=== PATIENT | male | born 1970 | race Caucasian/White ===

== ENCOUNTER 2017-08-05 17:41 | Emergency (ER) | payer OTHER ==
[~2017-08-05] VITALS: Ht 180.3 cm; Wt 81.7 kg
[~2017-08-05 17:41] MED LIST: ACET325 PO; ALBU90OI6 INH; ALPR.5 PO; AMOCLA875 PO; BACL20 PO; BENZ100A PO; CEPH500; CEPH500 PO; CETI10 PO; CLON.1 PO; CLON.5 PO; CYCL10 PO; DIAZ5 PO; DULO30 PO; EPIN.3I IM; FAMO20 PO; GABA300 PO; HYDACE10B PO; HYDACE5 PO; Hydroxyzine HCl50 MG PO; Hytrin PO; IBUP600 PO; IBUP800 PO; LITHIUM PO; LORA10ER; LORA10ER PO; Lamictal PO; Lamictal150 MG PO; MELO7.5 PO; MONT10T PO; Monodox100 MG PO; NAPR500 PO; Naprosyn500 MG PO; OLAN10 PO; OMEP20ER PO; OMEPRAZOLE MAGN20 MG PO; OXYACE5T PO; OXYC10TA19 PO; OXYC15ER PO; PERCOCET PO; PRED20 PO; PROC10 PO; PROC25S PR; PROC5 PO; PROM25 PO; PROM25S PR; PSEU120ER PO; Percocet 5-3251 EACH PO; Prednisone20 MG PO; RXCYCL10 PO; RXPROM25 PO; SERT100; SULTRIDS PO; TERA5 PO; TRAM50 PO; Ultram50 MG PO
== END 2017-08-05 18:55 | disposition home or self-care (01) ==
LOC: ER 17:41
DX: Z71.1 Person with feared health complaint in whom no diagnosis is made (principal); F15.90 Other stimulant use, unspecified, uncomplicated; F17.210 Nicotine dependence, cigarettes, uncomplicated; Z91.030 Bee allergy status; Z88.2 Allergy status to sulfonamides; Z88.8 Allergy status to other drugs, medicaments and biological substances; Z79.899 Other long term (current) drug therapy
CPT/HCPCS: 99281

== ENCOUNTER 2017-08-06 17:04 | Emergency (ER) | payer OTHER ==
[~2017-08-06] VITALS: Ht 180.3 cm; Wt 83.3 kg
== END 2017-08-06 18:00 | disposition left against medical advice (07) ==
LOC: ER 17:04
DX: Z53.21 Procedure and treatment not carried out due to patient leaving prior to being seen by health care provider (principal)

== ENCOUNTER → 2018-05-07 | Outpatient (CLI) | payer OTHER ==
[~2018-05-07] MED LIST changes: +ACET120S PR; +Zofran8 MG PO
== END ==
LOC: LAB SHORT 13:24 → LAB SRC 13:24
DX: Z79.01 Long term (current) use of anticoagulants (principal); Z51.81 Encounter for therapeutic drug level monitoring; R11.10 Vomiting, unspecified; Z86.19 Personal history of other infectious and parasitic diseases
CPT/HCPCS: 87177; 87209

== ENCOUNTER 2018-05-08 13:06 | Emergency (ER) | payer OTHER ==
[~2018-05-08] VITALS: Ht 180.3 cm; Wt 81.7 kg
[~2018-05-08 13:06] MED LIST changes: -ACET120S PR; -Zofran8 MG PO
[2018-05-08 14:03] LABS: BASOPHILS ABSOLUTE AUTO 0.05 K/mm3 (0.00-0.23); BASOPHILS PERCENT AUTO 0 % (0-2); EOSINOPHILS ABSOLUTE AUTO 0.21 K/mm3 (0.00-0.68); EOSINOPHILS PERCENT AUTO 1 % (0-6); Hematocrit 47.8 % (37.0-53.0); Hemoglobin 15.6 g/dL (13.5-17.5); IMMATURE GRAN ABSOLUTE AUTO 0.08 K/mm3 (0.00-0.10); IMMATURE GRAN PERCENT AUTO 1 % (0-1); LYMPHOCYTES ABSOLUTE AUTO 2.15 K/mm3 (0.84-5.20); LYMPHOCYTES PERCENT AUTO 15 % (21-46); MONOCYTES ABSOLUTE AUTO 0.79 K/mm3 (0.16-1.47); MONOCYTES PERCENT AUTO 5 % (4-13); Mean Corpuscular HGB 28.9 pg (26.0-34.0); Mean Corpuscular HGB Conc 32.6 g/dL (31.5-36.5); Mean Corpuscular Volume 89 fL (80-100); Mean Platelet Volume 10.2 fL (9.1-12.4); NEUTROPHILS ABSOLUTE AUTO 11.34 K/mm3 (1.96-9.15); NEUTROPHILS PERCENT AUTO 78 % (41-73); Platelet Count 335 K/mm3 (150-400); RDW Standard Deviation 42.1 fL (35.1-46.3); Red Blood Cell Count 5.39 M/mm3 (4.30-5.90); White Blood Cell Count 14.62 K/mm3 (4.00-11.30)
[2018-05-08 14:28] LABS: Alanine Aminotransfer (ALT/SGP 32 U/L (12-78); Albumin, Blood 4.1 g/dL (3.4-5.0); Albumin/Globulin Ratio 1.1 (0.8-1.8); Alk Phos 98 U/L (50-136); Anion Gap 7 mmol/L (6-16); Aspartate Aminotrans (AST/SGOT 13 U/L (12-37); Bilirubin, Total 0.4 mg/dL (0.1-1.0); Blood Urea Nitrogen 14 mg/dL (8-24); Bun/Creatinine Ratio 17.1 (12.0-20.0); CO2, Blood 30 mmol/L (21-32); Calcium, Blood 9.5 mg/dL (8.5-10.1); Chloride, Blood 103 mmol/L (98-108); Creatinine, Blood 0.82 mg/dL (0.60-1.20); Globulin, Blood 3.9 g/dL (2.2-4.0); Glomerular Filtration Rate >60 (60-); Glucose, Blood 111 mg/dL (70-99); Potassium, Blood 3.9 mmol/L (3.5-5.5); Sodium, Blood 140 mmol/L (136-145)
[2018-05-08] MEDS ORDERED: Zofran8 MG PO (17:01)
[2018-05-08] MEDS ORDERED: ACET120S PR (17:01)
[2018-05-08 17:14] LABS: U Amphetamine Screen Not Detected; U Barbituate Screen Not Detected; U Benzodiazapine Screen DETECTED; U Buprenorphine Screen Not Detected; U Cannabinoids Screen DETECTED; U Cocaine Screen Not Detected; U Methadone Screen Not Detected; U Methamphetamine Screen Not Detected; U Opiates Screen Not Detected; U Oxycodone Screen Not Detected; U Phencyclidine Screen Not Detected
[2018-05-08 17:15] LABS: U Propoxyphene Screen Not Detected
== END 2018-05-08 18:05 | disposition home or self-care (01) ==
LOC: ER 13:06
PROVIDERS: Emergency Medicine; Physician Assistant
DX: R10.33 Periumbilical pain (principal); R11.2 Nausea with vomiting, unspecified; F31.9 Bipolar disorder, unspecified; Z91.030 Bee allergy status; Z88.2 Allergy status to sulfonamides; Z88.8 Allergy status to other drugs, medicaments and biological substances; Z79.899 Other long term (current) drug therapy; F17.210 Nicotine dependence, cigarettes, uncomplicated
CPT/HCPCS: 36415; 74177; 80053; 82272; 83690; 85025; 96361-59; 96374-59; 99284-25; A9270-GY; J2405; J7120; Q9967

== ENCOUNTER 2018-10-25 05:26 | Emergency (ER) | payer OTHER ==
[~2018-10-25] VITALS: Ht 180.3 cm; Wt 81.7 kg
[~2018-10-25 05:26] MED LIST changes: +ACET120S PR; +ALBU90OI INH; -ALBU90OI6 INH; +LAMO100 PO; -Lamictal150 MG PO; +Zofran8 MG PO
[2018-10-25 06:02] LABS: BASOPHILS ABSOLUTE AUTO 0.04 K/mm3 (0.00-0.23); BASOPHILS PERCENT AUTO 1 % (0-2); EOSINOPHILS ABSOLUTE AUTO 0.08 K/mm3 (0.00-0.68); EOSINOPHILS PERCENT AUTO 1 % (0-6); Hematocrit 43.7 % (37.0-53.0); Hemoglobin 14.4 g/dL (13.5-17.5); IMMATURE GRAN ABSOLUTE AUTO 0.02 K/mm3 (0.00-0.10); IMMATURE GRAN PERCENT AUTO 0 % (0-1); LYMPHOCYTES ABSOLUTE AUTO 1.79 K/mm3 (0.84-5.20); LYMPHOCYTES PERCENT AUTO 25 % (21-46); MONOCYTES ABSOLUTE AUTO 0.57 K/mm3 (0.16-1.47); MONOCYTES PERCENT AUTO 8 % (4-13); Mean Corpuscular HGB 28.9 pg (26.0-34.0); Mean Corpuscular Volume 88 fL (80-100); Mean Platelet Volume 10.1 fL (9.1-12.4); NEUTROPHILS ABSOLUTE AUTO 4.58 K/mm3 (1.96-9.15); NEUTROPHILS PERCENT AUTO 65 % (41-73); Platelet Count 206 K/mm3 (150-400); RDW Coefficient Variation 13.3 % (11.7-14.2); RDW Standard Deviation 42.6 fL (35.1-46.3); Red Blood Cell Count 4.99 M/mm3 (4.30-5.90); White Blood Cell Count 7.08 K/mm3 (4.00-11.30)
[2018-10-25 06:10] LABS: Calcium, Ionized (POC) 1.07 mmol/L (1.10-1.46); Chloride (POC) 103 mmol/L (98-108); Creatinine (POC) 0.8 mg/dL (0.8-1.3); Glucose (ISTAT POC) 113 mg/dL (70-99); Hemoglobin (POC) 13.9 g/dL (13.5-17.5); Potassium (POC) 3.8 mmol/L (3.5-5.5); Sodium (POC) 139 mmol/L (135-148); Total CO2 (POC) 29 mmol/L (21-32)
[2018-10-25 06:24] LABS: Alanine Aminotransfer (ALT/SGP 42 U/L (12-78); Albumin, Blood 3.9 g/dL (3.4-5.0); Albumin/Globulin Ratio 1.1 (0.8-1.8); Alk Phos 92 U/L (50-136); Anion Gap 6 mmol/L (6-16); Aspartate Aminotrans (AST/SGOT 26 U/L (12-37); Bilirubin, Total 0.1 mg/dL (0.1-1.0); Blood Urea Nitrogen 8 mg/dL (8-24); CO2, Blood 29 mmol/L (21-32); Calcium, Blood 9.1 mg/dL (8.5-10.1); Chloride, Blood 107 mmol/L (98-108); Globulin, Blood 3.6 g/dL (2.2-4.0); Glomerular Filtration Rate >60 (60-); Glucose, Blood 111 mg/dL (70-99); Potassium, Blood 3.9 mmol/L (3.5-5.5); Sodium, Blood 142 mmol/L (136-145); Total Protein, Blood 7.5 g/dL (6.4-8.2)
[2018-10-25] MEDS ORDERED: DICLOFENAC SOD100 G1 (06:39)
[2018-10-25] MEDS ORDERED: Cetirizine HCl10 MG PO (06:39)
[2018-10-25] MEDS ORDERED: Xanax0.25 MG PO (06:39)
[2018-10-25] MEDS ORDERED: Hydroxyzine HCl50 MG PO (06:41)
[2018-10-25] MEDS ORDERED: REMERON15 MG PO (06:45)
[2018-10-25 06:58] LABS: Source, Urine Clean Catch
[2018-10-25 07:01] LABS: Appearance, Urine Hazy (Clear); Bilirubin, Urine Neg (Neg); Blood, Urine Neg (Neg); Color, Urine Yellow (P-Yellow); Glucose Qualitative, Urine Neg (Neg); Ketones, Urine Neg (Neg); Leukocyte Esterase, Urine Neg (Neg); Nitrite, Urine Neg (Neg); Protein, Urine Neg (Neg); Urobilinogen, Urine NORM (Normal)
[2018-10-25 07:12] LABS: Amorphous Mod (0-Heavy); Bacteria Rare /hpf; Red Blood Cells, Urine 0-2 /hpf (0-2); Squamous Epithelial Cells Not Seen /hpf (Few); White Blood Cells, Urine 0-2 /hpf (0-5)
[2018-10-25] MEDS ORDERED: Zithromax250 MG PO (09:51)
[2018-10-25] MEDS ORDERED: PROM25 PO (09:51)
== END 2018-10-25 11:04 | disposition home or self-care (01) ==
LOC: ER 05:26
PROVIDERS: Emergency Medicine
DX: K04.7 Periapical abscess without sinus (principal); E86.0 Dehydration; J18.9 Pneumonia, unspecified organism; F15.10 Other stimulant abuse, uncomplicated; F31.9 Bipolar disorder, unspecified; F17.200 Nicotine dependence, unspecified, uncomplicated; Z88.8 Allergy status to other drugs, medicaments and biological substances; Z88.2 Allergy status to sulfonamides; Z91.038 Other insect allergy status; Z79.899 Other long term (current) drug therapy
CPT/HCPCS: 36415; 71045; 80047; 80053; 81001; 82272; 83690; 85014; 85025; 96361; 96365; 96375; 96376; 99284-25; J0456; J2405; J2550; J7030; J7050

== ENCOUNTER → 2018-11-26 | Outpatient (CLI) | payer OTHER ==
[~2018-11-26] MED LIST changes: +Cetirizine HCl10 MG PO; +DICLOFENAC SOD100 G1; +REMERON15 MG PO; +Xanax0.25 MG PO; +Zithromax250 MG PO
== END | disposition home or self-care (01) ==
LOC: LAB SHORT 18:20 → LAB 18:20
DX: L02.511 Cutaneous abscess of right hand (principal)
CPT/HCPCS: 87070; 87075; 87077; 87147; 87186; 87205

== ENCOUNTER 2018-12-15 18:11 | Emergency (ER) | payer OTHER ==
[~2018-12-15] VITALS: Ht 172.7 cm; Wt 81.7 kg
[2018-12-15] MEDS ORDERED: CYCL10 PO (22:17)
== END 2018-12-15 22:58 | disposition home or self-care (01) ==
LOC: ER 18:11
DX: M54.2 Cervicalgia (principal); M25.531 Pain in right wrist; M79.644 Pain in right finger(s); J45.909 Unspecified asthma, uncomplicated; F31.9 Bipolar disorder, unspecified; F17.200 Nicotine dependence, unspecified, uncomplicated; Z91.030 Bee allergy status; Z88.2 Allergy status to sulfonamides; Z88.8 Allergy status to other drugs, medicaments and biological substances; Z79.899 Other long term (current) drug therapy; V48.5XXA Car driver injured in noncollision transport accident in traffic accident, initial encounter
CPT/HCPCS: 71046; 72125; 73110; 73130; 96372; 99284-25; J1885

== ENCOUNTER 2019-03-26 05:59 | Emergency (ER) | payer OTHER ==
[~2019-03-26] VITALS: Ht 170.2 cm; Wt 90.7 kg
== END 2019-03-26 07:54 | disposition home or self-care (01) ==
LOC: ER 05:59
DX: K03.81 Cracked tooth (principal); F15.10 Other stimulant abuse, uncomplicated; F31.9 Bipolar disorder, unspecified; M54.5 Low back pain; G89.29 Other chronic pain; F17.200 Nicotine dependence, unspecified, uncomplicated; Z88.2 Allergy status to sulfonamides; Z91.038 Other insect allergy status; Z88.8 Allergy status to other drugs, medicaments and biological substances; Z79.2 Long term (current) use of antibiotics; Z79.899 Other long term (current) drug therapy
CPT/HCPCS: 99283

== ENCOUNTER 2019-03-28 15:21 | Emergency (ER) | payer OTHER ==
[~2019-03-28] VITALS: Ht 180.3 cm; Wt 97.1 kg
[2019-03-28] MEDS ORDERED: SALONPAS GEL-P1 EACH TP (15:46)
[2019-03-28] MEDS ORDERED: PRAZ2 PO (15:47)
[2019-03-28] MEDS ORDERED: IBUP400 (15:47)
[2019-03-28] MEDS ORDERED: SERT25 PO (15:48)
[2019-03-28] MEDS ORDERED: ZYRTEC10 M2 PO (15:48)
[2019-03-28] MEDS ORDERED: Catapres0.2 MG PO (15:48)
[2019-03-28] MEDS ORDERED: Ventolin/Prove6.7 GM (15:49)
== END 2019-03-28 16:32 | disposition home or self-care (01) ==
LOC: ER 15:21
DX: K04.7 Periapical abscess without sinus (principal); K03.81 Cracked tooth; J06.9 Acute upper respiratory infection, unspecified; F15.10 Other stimulant abuse, uncomplicated; F31.9 Bipolar disorder, unspecified; J45.909 Unspecified asthma, uncomplicated; F17.200 Nicotine dependence, unspecified, uncomplicated; Z91.030 Bee allergy status; Z88.2 Allergy status to sulfonamides; Z88.8 Allergy status to other drugs, medicaments and biological substances; Z79.899 Other long term (current) drug therapy; Z79.51 Long term (current) use of inhaled steroids
CPT/HCPCS: 99283

== ENCOUNTER 2019-09-21 23:52 | Emergency (ER) | payer OTHER ==
[~2019-09-21] VITALS: Ht 180.3 cm; Wt 81.7 kg
[~2019-09-21 23:52] MED LIST changes: +BACITO TOP; +Catapres0.2 MG PO; +IBUP400; +NEOPOLHCSU LEFTEAR; +PRAZ2 PO; +SALONPAS GEL-P1 EACH TP; +SERT25 PO; +Ventolin/Prove6.7 GM; +ZYRTEC10 M2 PO
[2019-09-22] MEDS ORDERED: CEFD300 PO (00:43)
== END 2019-09-22 01:07 | disposition home or self-care (01) ==
LOC: ER 23:52
DX: H60.92 Unspecified otitis externa, left ear (principal); Z88.2 Allergy status to sulfonamides; Z91.030 Bee allergy status; Z88.8 Allergy status to other drugs, medicaments and biological substances; Z79.899 Other long term (current) drug therapy; F17.210 Nicotine dependence, cigarettes, uncomplicated; F31.9 Bipolar disorder, unspecified
CPT/HCPCS: 96372; 99282; J1885

== ENCOUNTER 2019-10-20 17:35 | Emergency (ER) | payer OTHER ==
[~2019-10-20] VITALS: Ht 180.3 cm; Wt 83.9 kg
[~2019-10-20 17:35] MED LIST changes: +CEFD300 PO
[2019-10-20] MEDS ORDERED: LIDOCAINE15 GM TOP (18:38)
[2019-10-20] MEDS ORDERED: EUCERIN INTENSI TOP (18:38)
[2019-10-20] MEDS ORDERED: MUPIROCIN1 GM TOP (18:38)
== END 2019-10-20 18:47 | disposition home or self-care (01) ==
LOC: ER 17:35
DX: L03.811 Cellulitis of head [any part, except face] (principal); B95.62 Methicillin resistant Staphylococcus aureus infection as the cause of diseases classified elsewhere; Z91.030 Bee allergy status; Z88.2 Allergy status to sulfonamides; Z88.8 Allergy status to other drugs, medicaments and biological substances; Z79.899 Other long term (current) drug therapy; F31.9 Bipolar disorder, unspecified; J45.909 Unspecified asthma, uncomplicated; M54.5 Low back pain; G89.29 Other chronic pain; F17.210 Nicotine dependence, cigarettes, uncomplicated
CPT/HCPCS: 99282

== ENCOUNTER 2019-10-22 10:17 | Emergency (ER) | payer OTHER ==
[~2019-10-22] VITALS: Ht 180.3 cm; Wt 83.9 kg
[~2019-10-22 10:17] MED LIST changes: +EUCERIN INTENSI TOP; +LIDOCAINE15 GM TOP; +MUPIROCIN1 GM TOP
[2019-10-22 11:10] LABS: BASOPHILS ABSOLUTE AUTO 0.06 K/mm3 (0.00-0.23); BASOPHILS PERCENT AUTO 1 % (0-2); EOSINOPHILS ABSOLUTE AUTO 0.25 K/mm3 (0.00-0.68); EOSINOPHILS PERCENT AUTO 4 % (0-6); Hematocrit 45.5 % (37.0-53.0); Hemoglobin 14.9 g/dL (13.5-17.5); IMMATURE GRAN ABSOLUTE AUTO 0.01 K/mm3 (0.00-0.10); IMMATURE GRAN PERCENT AUTO 0 % (0-1); LYMPHOCYTES ABSOLUTE AUTO 1.74 K/mm3 (0.84-5.20); LYMPHOCYTES PERCENT AUTO 24 % (21-46); MONOCYTES ABSOLUTE AUTO 0.54 K/mm3 (0.16-1.47); MONOCYTES PERCENT AUTO 8 % (4-13); Mean Corpuscular HGB 28.1 pg (26.0-34.0); Mean Corpuscular HGB Conc 32.7 g/dL (31.5-36.5); Mean Corpuscular Volume 86 fL (80-100); Mean Platelet Volume 10.6 fL (9.1-12.4); NEUTROPHILS ABSOLUTE AUTO 4.53 K/mm3 (1.96-9.15); NEUTROPHILS PERCENT AUTO 64 % (41-73); Platelet Count 263 K/mm3 (150-400); RDW Coefficient Variation 13.7 % (11.7-14.2); RDW Standard Deviation 42.8 fL (35.1-46.3); White Blood Cell Count 7.13 K/mm3 (4.00-11.30)
[2019-10-22 11:33] LABS: Alanine Aminotransfer (ALT/SGP 39 U/L (12-78); Albumin, Blood 4.2 g/dL (3.4-5.0); Albumin/Globulin Ratio 1.1 (0.8-1.8); Alk Phos 94 U/L (50-136); Anion Gap 8 mmol/L (6-16); Aspartate Aminotrans (AST/SGOT 17 U/L (12-37); Bilirubin, Total 0.4 mg/dL (0.1-1.0); Blood Urea Nitrogen 21 mg/dL (8-24); Bun/Creatinine Ratio 18.8 (12.0-20.0); C-REACTIVE PROTEIN, EXT RANGE <0.290 mg/dL (0.000-0.300); CO2, Blood 26 mmol/L (21-32); Calcium, Blood 9.3 mg/dL (8.5-10.1); Chloride, Blood 106 mmol/L (98-108); Creatinine, Blood 1.12 mg/dL (0.60-1.20); Globulin, Blood 3.9 g/dL (2.2-4.0); Glomerular Filtration Rate >60 (60-); Glucose, Blood 101 mg/dL (70-99); Potassium, Blood 3.7 mmol/L (3.5-5.5); Sodium, Blood 140 mmol/L (136-145); Total Protein, Blood 8.1 g/dL (6.4-8.2)
[2019-10-22] MEDS ORDERED: CEPH500 PO (11:44)
[2019-10-23] MEDS ORDERED: BACITO TOP (00:11)
== END 2019-10-22 11:54 | disposition home or self-care (01) ==
LOC: ER 10:17
PROVIDERS: Emergency Medicine
DX: L03.811 Cellulitis of head [any part, except face] (principal); L03.012 Cellulitis of left finger; L03.011 Cellulitis of right finger; S60.419A Abrasion of unspecified finger, initial encounter; R05 Cough; R11.0 Nausea; R39.198 Other difficulties with micturition; F17.210 Nicotine dependence, cigarettes, uncomplicated; Z88.2 Allergy status to sulfonamides; Z88.8 Allergy status to other drugs, medicaments and biological substances; Z91.030 Bee allergy status; X58.XXXA Exposure to other specified factors, initial encounter
CPT/HCPCS: 36415; 80053; 85025; 86140; 99283; A9270-GY

== ENCOUNTER 2019-10-22 20:16 | Emergency (ER) | payer OTHER ==
[~2019-10-22] VITALS: Ht 180.3 cm; Wt 83.9 kg
[2019-10-23] MEDS ORDERED: BACITO TOP (00:11)
== END 2019-10-23 00:40 | disposition home or self-care (01) ==
LOC: ER 20:16
DX: F22 Delusional disorders (principal); F54 Psychological and behavioral factors associated with disorders or diseases classified elsewhere; F17.200 Nicotine dependence, unspecified, uncomplicated; Z88.8 Allergy status to other drugs, medicaments and biological substances; Z91.030 Bee allergy status; Z79.899 Other long term (current) drug therapy
CPT/HCPCS: 99282

== ENCOUNTER 2020-01-12 17:46 | Emergency (ER) | payer OTHER ==
[~2020-01-12] VITALS: Ht 180.3 cm; Wt 79.6 kg
[2020-01-12 19:23] LABS: BASOPHILS ABSOLUTE AUTO 0.04 K/mm3 (0.00-0.23); BASOPHILS PERCENT AUTO 1 % (0-2); EOSINOPHILS ABSOLUTE AUTO 0.33 K/mm3 (0.00-0.68); EOSINOPHILS PERCENT AUTO 5 % (0-6); Hematocrit 41.2 % (37.0-53.0); Hemoglobin 13.2 g/dL (13.5-17.5); IMMATURE GRAN ABSOLUTE AUTO 0.01 K/mm3 (0.00-0.10); IMMATURE GRAN PERCENT AUTO 0 % (0-1); LYMPHOCYTES ABSOLUTE AUTO 2.21 K/mm3 (0.84-5.20); LYMPHOCYTES PERCENT AUTO 36 % (21-46); MONOCYTES ABSOLUTE AUTO 0.52 K/mm3 (0.16-1.47); MONOCYTES PERCENT AUTO 8 % (4-13); Mean Corpuscular HGB 28.2 pg (26.0-34.0); Mean Corpuscular Volume 88 fL (80-100); Mean Platelet Volume 10.3 fL (9.1-12.4); NEUTROPHILS PERCENT AUTO 50 % (41-73); Platelet Count 270 K/mm3 (150-400); RDW Coefficient Variation 13.9 % (11.7-14.2); RDW Standard Deviation 44.6 fL (35.1-46.3); Red Blood Cell Count 4.68 M/mm3 (4.30-5.90); White Blood Cell Count 6.21 K/mm3 (4.00-11.30)
[2020-01-12 19:47] LABS: Alanine Aminotransfer (ALT/SGP 31 U/L (12-78); Albumin, Blood 3.6 g/dL (3.4-5.0); Albumin/Globulin Ratio 1.1 (0.8-1.8); Alk Phos 98 U/L (50-136); Anion Gap 5 mmol/L (6-16); Aspartate Aminotrans (AST/SGOT 19 U/L (12-37); Bilirubin, Total 0.2 mg/dL (0.1-1.0); Blood Urea Nitrogen 14 mg/dL (8-24); Bun/Creatinine Ratio 15.1 (12.0-20.0); CO2, Blood 26 mmol/L (21-32); Calcium, Blood 8.7 mg/dL (8.5-10.1); Chloride, Blood 110 mmol/L (98-108); Creatinine, Blood 0.93 mg/dL (0.60-1.20); Globulin, Blood 3.3 g/dL (2.2-4.0); Glomerular Filtration Rate >60 (60-); Glucose, Blood 104 mg/dL (70-99); Potassium, Blood 4.1 mmol/L (3.5-5.5); Sodium, Blood 141 mmol/L (136-145); Total Protein, Blood 6.9 g/dL (6.4-8.2); Troponin I <0.015 ng/mL (0.000-0.040)
[2020-01-12] MEDS ORDERED: KETO10 PO (22:44)
[2020-01-12] MEDS ORDERED: ACET500 PO (22:44)
== END 2020-01-12 23:08 | disposition home or self-care (01) ==
LOC: ER 17:46
PROVIDERS: Emergency Medicine
DX: S80.11XA Contusion of right lower leg, initial encounter (principal); M54.9 Dorsalgia, unspecified; R05 Cough; F31.9 Bipolar disorder, unspecified; F17.210 Nicotine dependence, cigarettes, uncomplicated; Z79.899 Other long term (current) drug therapy; Z91.030 Bee allergy status; Z88.2 Allergy status to sulfonamides; Z88.8 Allergy status to other drugs, medicaments and biological substances; V03.99XA Pedestrian with other conveyance injured in collision with car, pick-up truck or van, unspecified whether traffic or nontraffic accident, initial encounter; Y92.410 Unspecified street and highway as the place of occurrence of the external cause
CPT/HCPCS: 36415; 71046; 80053; 83690; 84484; 85025; 93005; 93010; 96374; 99284-25; A9270; J1885

== ENCOUNTER 2020-01-22 18:46 | Emergency (ER) | payer OTHER ==
[~2020-01-22] VITALS: Ht 180.3 cm; Wt 79.4 kg
[~2020-01-22 18:46] MED LIST changes: +ACET500 PO; +KETO10 PO
[2020-01-22] MEDS ORDERED: KETO10 PO ×2 (20:56→21:20)
[2020-01-22] MEDS ORDERED: CYCL10 PO ×2 (20:56→21:20)
== END 2020-01-22 21:10 | disposition home or self-care (01) ==
LOC: ER 18:46
DX: S39.012A Strain of muscle, fascia and tendon of lower back, initial encounter (principal); F31.9 Bipolar disorder, unspecified; F17.210 Nicotine dependence, cigarettes, uncomplicated; Z79.899 Other long term (current) drug therapy; Z91.030 Bee allergy status; Z88.8 Allergy status to other drugs, medicaments and biological substances; Z88.5 Allergy status to narcotic agent
CPT/HCPCS: 72100; 96372; 99283-25; J1885

== ENCOUNTER 2020-02-27 04:12 | Emergency (ER) | payer OTHER ==
[~2020-02-27] VITALS: Ht 175.3 cm; Wt 63.5 kg
[~2020-02-27 04:12] MED LIST changes: -Ventolin/Prove6.7 GM; +Ventolin/Prove6.7 GM INH
[2020-02-28] MEDS ORDERED: LAMO100 PO ×2 (12:05→12:35)
[2020-02-28] MEDS ORDERED: DICLOFENAC SOD100 G1 TOP (12:09)
[2020-02-28] MEDS ORDERED: ALBU90OI INH (12:35)
[2020-02-28] MEDS ORDERED: ZYRTEC10 M2 PO (12:35)
[2020-02-28] MEDS ORDERED: ACET500 PO (12:35)
[2020-02-28] MEDS ORDERED: SERT50 PO (12:35)
[2020-02-28] MEDS ORDERED: IBUP400 PO (12:35)
[2020-02-28] MEDS ORDERED: OMEP20ER PO (12:35)
== END 2020-02-27 04:20 | disposition home or self-care (01) ==
LOC: ER 04:12
DX: Z00.00 Encounter for general adult medical examination without abnormal findings (principal); F17.200 Nicotine dependence, unspecified, uncomplicated; Z88.2 Allergy status to sulfonamides; Z91.030 Bee allergy status; Z79.899 Other long term (current) drug therapy
CPT/HCPCS: 99282

== ENCOUNTER 2020-02-28 10:44 | Emergency (ER) | payer OTHER ==
[~2020-02-28] VITALS: Ht 180.3 cm; Wt 86.2 kg
[2020-02-28] MEDS ORDERED: LAMO100 PO ×2 (12:05→12:35)
[2020-02-28] MEDS ORDERED: DICLOFENAC SOD100 G1 TOP (12:09)
[2020-02-28] MEDS ORDERED: ALBU90OI INH (12:35)
[2020-02-28] MEDS ORDERED: SERT50 PO (12:35)
[2020-02-28] MEDS ORDERED: ACET500 PO (12:35)
[2020-02-28] MEDS ORDERED: IBUP400 PO (12:35)
[2020-02-28] MEDS ORDERED: ZYRTEC10 M2 PO (12:35)
[2020-02-28] MEDS ORDERED: OMEP20ER PO (12:35)
== END 2020-02-28 12:45 | disposition home or self-care (01) ==
LOC: ER 10:44
DX: Z76.0 Encounter for issue of repeat prescription (principal); R45.1 Restlessness and agitation; M79.673 Pain in unspecified foot; G89.29 Other chronic pain; M54.5 Low back pain; F31.9 Bipolar disorder, unspecified; F17.200 Nicotine dependence, unspecified, uncomplicated; Z79.899 Other long term (current) drug therapy; Z91.030 Bee allergy status; Z88.8 Allergy status to other drugs, medicaments and biological substances
CPT/HCPCS: 99281

== ENCOUNTER 2020-03-08 14:02 | Emergency (ER) | payer OTHER ==
[~2020-03-08] VITALS: Ht 177.8 cm; Wt 72.6 kg
[~2020-03-08 14:02] MED LIST changes: +DICLOFENAC SOD100 G1 TOP; +IBUP400 PO; +SERT50 PO
[2020-03-08] MEDS ORDERED: CEPH500 PO ×3 (16:01→16:41)
== END 2020-03-08 16:41 | disposition home or self-care (01) ==
LOC: ER 14:02
DX: L02.11 Cutaneous abscess of neck (principal); L03.221 Cellulitis of neck; L02.414 Cutaneous abscess of left upper limb; L02.413 Cutaneous abscess of right upper limb; L02.416 Cutaneous abscess of left lower limb; L02.415 Cutaneous abscess of right lower limb; F17.210 Nicotine dependence, cigarettes, uncomplicated; Z79.899 Other long term (current) drug therapy; Z88.2 Allergy status to sulfonamides
CPT/HCPCS: 99282

== ENCOUNTER 2020-04-02 21:37 | Emergency (ER) | payer OTHER ==
[~2020-04-02] VITALS: Ht 180.3 cm; Wt 77.1 kg
[2020-04-04] MEDS ORDERED: PROM25 PO (09:04)
== END 2020-04-03 00:49 | disposition home or self-care (01) ==
LOC: ER 21:37
DX: L30.9 Dermatitis, unspecified (principal); F17.210 Nicotine dependence, cigarettes, uncomplicated; Z88.2 Allergy status to sulfonamides; Z91.030 Bee allergy status; Z79.899 Other long term (current) drug therapy
CPT/HCPCS: 99282

== ENCOUNTER 2020-04-04 07:19 | Emergency (ER) | payer OTHER ==
[~2020-04-04] VITALS: Ht 177.8 cm; Wt 77.1 kg
[2020-04-04 08:09] LABS: BASOPHILS ABSOLUTE AUTO 0.05 K/mm3 (0.00-0.23); BASOPHILS PERCENT AUTO 1 % (0-2); EOSINOPHILS ABSOLUTE AUTO 0.34 K/mm3 (0.00-0.68); EOSINOPHILS PERCENT AUTO 4 % (0-6); IMMATURE GRAN ABSOLUTE AUTO 0.02 K/mm3 (0.00-0.10); IMMATURE GRAN PERCENT AUTO 0 % (0-1); LYMPHOCYTES ABSOLUTE AUTO 1.78 K/mm3 (0.84-5.20); LYMPHOCYTES PERCENT AUTO 22 % (21-46); MONOCYTES ABSOLUTE AUTO 0.68 K/mm3 (0.16-1.47); MONOCYTES PERCENT AUTO 8 % (4-13); Mean Corpuscular HGB 28.6 pg (26.0-34.0); Mean Corpuscular HGB Conc 32.6 g/dL (31.5-36.5); Mean Corpuscular Volume 88 fL (80-100); Mean Platelet Volume 10.2 fL (9.1-12.4); NEUTROPHILS ABSOLUTE AUTO 5.36 K/mm3 (1.96-9.15); NEUTROPHILS PERCENT AUTO 65 % (41-73); Platelet Count 243 K/mm3 (150-400); RDW Coefficient Variation 13.7 % (11.7-14.2); RDW Standard Deviation 44.1 fL (35.1-46.3); White Blood Cell Count 8.23 K/mm3 (4.00-11.30)
[2020-04-04 08:29] LABS: Alanine Aminotransfer (ALT/SGP 66 U/L (12-78); Albumin, Blood 3.7 g/dL (3.4-5.0); Albumin/Globulin Ratio 0.9 (0.8-1.8); Alk Phos 118 U/L (50-136); Anion Gap 4 mmol/L (6-16); Aspartate Aminotrans (AST/SGOT 30 U/L (12-37); Bilirubin, Total 0.4 mg/dL (0.1-1.0); Blood Urea Nitrogen 18 mg/dL (8-24); Bun/Creatinine Ratio 20.6 (12.0-20.0); CO2, Blood 28 mmol/L (21-32); Calcium, Blood 8.9 mg/dL (8.5-10.1); Chloride, Blood 107 mmol/L (98-108); Creatinine, Blood 0.87 mg/dL (0.60-1.20); Globulin, Blood 3.9 g/dL (2.2-4.0); Glomerular Filtration Rate >60 (60-); Glucose, Blood 101 mg/dL (70-99); Potassium, Blood 4.3 mmol/L (3.5-5.5); Sodium, Blood 139 mmol/L (136-145); Total Protein, Blood 7.6 g/dL (6.4-8.2)
[2020-04-04] MEDS ORDERED: PROM25 PO (09:04)
== END 2020-04-04 09:17 | disposition home or self-care (01) ==
LOC: ER 07:19
PROVIDERS: Emergency Medicine
DX: R10.9 Unspecified abdominal pain (principal); R11.2 Nausea with vomiting, unspecified; F17.210 Nicotine dependence, cigarettes, uncomplicated; Z79.899 Other long term (current) drug therapy
CPT/HCPCS: 36415; 80053; 83690; 85025; 87177; 87209; 96374; 99284-25; J2405; J7120

== ENCOUNTER 2020-10-04 16:33 | Emergency (ER) | payer OTHER ==
[~2020-10-04] VITALS: Ht 180.3 cm; Wt 72.6 kg
[2020-10-04] MEDS ORDERED: CIPHYDOTSU LEFTEAR (19:55)
== END 2020-10-04 20:46 | disposition home or self-care (01) ==
LOC: ER 16:33
DX: H60.502 Unspecified acute noninfective otitis externa, left ear (principal); J45.909 Unspecified asthma, uncomplicated; F17.210 Nicotine dependence, cigarettes, uncomplicated; Z23 Encounter for immunization; Z91.038 Other insect allergy status; Z88.2 Allergy status to sulfonamides; Z88.8 Allergy status to other drugs, medicaments and biological substances
CPT/HCPCS: 0031A; 70450; 91303; 99284-25; A9270

== ENCOUNTER → 2022-01-19 | Outpatient (CLI) | payer OTHER ==
[~2022-01-19] MED LIST changes: +CIPHYDOTSU LEFTEAR
[2022-01-19 12:16] LABS: Bun/Creatinine Ratio 18.4 (12.0-20.0); Calcium, Blood 8.6 mg/dL (8.5-10.1); Creatinine, Blood 1.03 mg/dL (0.60-1.20); Potassium, Blood 4.2 mmol/L (3.5-5.5)
[2022-01-19 12:31] LABS: BASOPHILS ABSOLUTE AUTO 0.04 K/mm3 (0.00-0.23); BASOPHILS PERCENT AUTO 1 % (0-2); EOSINOPHILS ABSOLUTE AUTO 0.19 K/mm3 (0.00-0.68); EOSINOPHILS PERCENT AUTO 3 % (0-6); Hematocrit 42.1 % (37.0-53.0); Hemoglobin 14.1 g/dL (13.5-17.5); IMMATURE GRAN ABSOLUTE AUTO 0.04 K/mm3 (0.00-0.10); IMMATURE GRAN PERCENT AUTO 1 % (0-1); LYMPHOCYTES ABSOLUTE AUTO 1.93 K/mm3 (0.84-5.20); LYMPHOCYTES PERCENT AUTO 25 % (21-46); MONOCYTES ABSOLUTE AUTO 0.39 K/mm3 (0.16-1.47); MONOCYTES PERCENT AUTO 5 % (4-13); Mean Corpuscular HGB 29.6 pg (26.0-34.0); Mean Corpuscular HGB Conc 33.5 g/dL (31.5-36.5); Mean Corpuscular Volume 88 fL (80-100); NEUTROPHILS ABSOLUTE AUTO 5.08 K/mm3 (1.96-9.15); NEUTROPHILS PERCENT AUTO 66 % (41-73); Platelet Count 199 K/mm3 (150-400); RDW Coefficient Variation 13.7 % (11.7-14.2); RDW Standard Deviation 44.5 fL (35.1-46.3); Red Blood Cell Count 4.77 M/mm3 (4.30-5.90); White Blood Cell Count 7.67 K/mm3 (4.00-11.30)
== END | disposition home or self-care (01) ==
LOC: LAB 12:07 → LAB SHORT 12:07
PROVIDERS: Physician Assistant
DX: K92.0 Hematemesis (principal)
CPT/HCPCS: 80048; 85025

== ENCOUNTER → 2022-01-23 | Outpatient (CLI) | payer OTHER ==
[2022-01-23 13:57] LABS: Stool Occult Bld Immuno 1 Negative (NEGATIVE)
== END ==
LOC: LAB SHORT 08:00 → LAB 08:00
PROVIDERS: Physician Assistant
DX: Z12.11 Encounter for screening for malignant neoplasm of colon (principal)
CPT/HCPCS: G0328

== ENCOUNTER 2022-10-05 08:44 | Day surgery (SDC) | payer OTHER ==
[~2022-10-05] VITALS: Ht 180.3 cm; Wt 102.1 kg
[2022-10-05] MEDS ORDERED: GABA100 (09:21)
[2022-10-05] MEDS ORDERED: ABILIFY MYCITE10 M2 (09:22)
[2022-10-05] MEDS ORDERED: Lisinopril2.5 MG (09:24)
[2022-10-05] MEDS ORDERED: CETI5 (09:26)
--- NOTE | 2022-10-05 09:50 | NUR ---
10/05/22 0950 AMINA COPELAND RN VERBAL CONSUTL WITH DR. HUERTA, PT HAS EXPIRATORY WHEEZING AND COARSE LUNG SOUNDS. PT IS A CURRENT EVERY DAY SMOKER, LAST USED ALBUTEROL INHALER TWO DAYS AGO. DR. HUERTA WITH ORDER FOR DUONEB NEBULIZER ONE TIME PRN, PRE-OP. RN UPDATED ORDERS.
--- NOTE | 2022-10-05 12:28 | NUR ---
10/05/22 1228 Elisabet Bailon PT REPORTED PAIN 3/10, 12.5MCG OF FENTANYL GIVEN VIA IV PER ORDERS. PT REPORTS PAIN 1/10 AT THIS TIME WHICH IS A COMFORTABLE LEVEL FOR HIM
[2022-10-05 12:29] VITALS: BP 117/73
== END 2022-10-05 12:43 | disposition home or self-care (01) ==
LOC: ORSCSDS 08:44 → ORD 09:30 → ORSCSDS 10:30
PROVIDERS: Surgery
PROC: 0JB70ZX Excision of Back Subcutaneous Tissue and Fascia, Open Approach, Diagnostic (ICD-10-PCS; principal; 2022-10-05 10:30)
DX: D17.0 Benign lipomatous neoplasm of skin and subcutaneous tissue of head, face and neck (principal); I10 Essential (primary) hypertension; E78.00 Pure hypercholesterolemia, unspecified; J44.9 Chronic obstructive pulmonary disease, unspecified; F17.210 Nicotine dependence, cigarettes, uncomplicated; K21.9 Gastro-esophageal reflux disease without esophagitis; F31.9 Bipolar disorder, unspecified; G40.909 Epilepsy, unspecified, not intractable, without status epilepticus; Z79.899 Other long term (current) drug therapy
CPT/HCPCS: 88304; A9270; J0690; J1100; J2405; J2704; J2795; J3010

== ENCOUNTER → 2023-02-28 | Outpatient (CLI) | payer OTHER ==
[~2023-02-28] MED LIST changes: +ABILIFY MYCITE10 M2; +CETI5; +GABA100; +Lisinopril2.5 MG
[2023-03-01 10:21] LABS: Stool Occult Bld Immuno 1 Positive (NEGATIVE)
== END ==
LOC: LAB SHORT 10:00 → LAB 10:00
PROVIDERS: Physician Assistant
DX: Z12.11 Encounter for screening for malignant neoplasm of colon (principal)
CPT/HCPCS: G0328

== ENCOUNTER 2023-09-03 08:44 | Day surgery (SDC) | payer OTHER ==
[~2023-09-03] VITALS: Ht 180.3 cm; Wt 104.1 kg
[~2023-09-03 08:44] MED LIST changes: +LISI20 PO; +Lactated Ringer's 1,000 ML IV ONE; -OMEPRAZOLE MAGN20 MG PO; +propofoL 50 ML IV ONE
[2023-09-03] MEDS ORDERED: Lactated Ringer's 1,000 ML IV ONE (09:24)
--- NOTE | 2023-09-03 10:37 | NUR ---
09/03/23 Inocente Machado 4ML NS INJECTED TO REMOVE POLYP.
[2023-09-03 11:05] VITALS: BP 124/81
== END 2023-09-03 11:10 | disposition home or self-care (01) ==
LOC: ORSCSDS 08:44
PROVIDERS: Specialist
PROC: 0DBM8ZX Excision of Descending Colon, Via Natural or Artificial Opening Endoscopic, Diagnostic (ICD-10-PCS; principal; 2023-09-03 10:00)
PROC: 0DBP8ZX Excision of Rectum, Via Natural or Artificial Opening Endoscopic, Diagnostic (ICD-10-PCS; principal; 2023-09-03 10:00)
PROC: 0DBL8ZX Excision of Transverse Colon, Via Natural or Artificial Opening Endoscopic, Diagnostic (ICD-10-PCS; principal; 2023-09-03 10:00)
PROC: 0DBK8ZX Excision of Ascending Colon, Via Natural or Artificial Opening Endoscopic, Diagnostic (ICD-10-PCS; principal; 2023-09-03 10:00)
DX: Z12.11 Encounter for screening for malignant neoplasm of colon (principal); D12.2 Benign neoplasm of ascending colon; D12.3 Benign neoplasm of transverse colon; D12.4 Benign neoplasm of descending colon; D12.8 Benign neoplasm of rectum; K64.8 Other hemorrhoids; K57.30 Diverticulosis of large intestine without perforation or abscess without bleeding; R19.5 Other fecal abnormalities; Z83.719 Family history of colon polyps, unspecified; F31.9 Bipolar disorder, unspecified; E78.5 Hyperlipidemia, unspecified; I10 Essential (primary) hypertension; J45.909 Unspecified asthma, uncomplicated; Z87.820 Personal history of traumatic brain injury; G40.909 Epilepsy, unspecified, not intractable, without status epilepticus; Z79.899 Other long term (current) drug therapy
CPT/HCPCS: 88305; J2704; J7120

== ENCOUNTER 2024-09-07 08:00 | Day surgery (SDC) | payer OTHER ==
[~2024-09-07] VITALS: Ht 180.3 cm; Wt 112.6 kg
[~2024-09-07 08:00] MED LIST changes: -Lactated Ringer's 1,000 ML IV ONE; -propofoL 50 ML IV ONE
[2024-09-07] MEDS ORDERED: Ondansetron HCl 2 MG / ML 2ML Vial ONE (10:18)
[2024-09-07 10:53] VITALS: BP 135/91
== END 2024-09-07 10:50 | disposition home or self-care (01) ==
LOC: ORSCSDS 08:00
PROVIDERS: Internal Medicine Gastroenterology
PROC: 0DBK8ZX Excision of Ascending Colon, Via Natural or Artificial Opening Endoscopic, Diagnostic (ICD-10-PCS; principal; 2024-09-07 09:45)
DX: Z09 Encounter for follow-up examination after completed treatment for conditions other than malignant neoplasm (principal); D12.2 Benign neoplasm of ascending colon; Z86.0101 Personal history of adenomatous and serrated colon polyps; Z79.899 Other long term (current) drug therapy
CPT/HCPCS: 88305; J2405; J2704; J7120